=== PATIENT | male | born 1980 | race Hispanic/Latino ===

== ENCOUNTER 2024-05-04 15:32 | Emergency (ER) | payer BC ==
[~2024-05-04] VITALS: Ht 180.3 cm; Wt 108.9 kg
[2024-05-04] MEDS: CYCLOBENZAPRINE HCL 10 MG TABLET PO ONE (21:47)
[2024-05-04] MEDS ORDERED: CYCL10TA16 PO (21:47)
[2024-05-04] MEDS: DIAZEPAM 2 MG TAB PO ONE (21:47)
[2024-05-04] MEDS ORDERED: IBUP-2070 PO (21:47)
[2024-05-04] MEDS: KETOROLAC 60 MG VIAL (30MG/ML) IM ONE (21:48)
[2024-05-04 22:08] VITALS: BP 115/76; PULSE 72; RESP 16; O2SAT 97
== END 2024-05-04 22:15 | disposition home or self-care (01) ==
LOC: EDH 15:32
DX: M43.6 Torticollis (principal)
CPT/HCPCS: 72125; J1885